=== PATIENT | female | born 1995 | race Caucasian/White ===

== ENCOUNTER 2016-10-28 17:00 | Emergency (ER) | payer OTHER ==
[2016-10-28 17:06] VITALS: BP 107/66
[2016-10-28] MEDS ORDERED: Nitrofurantoin Macrocrystals* 50 MG CAP PO ONE (18:17)
--- NOTE | 2016-10-28 18:21 | UC ---
Complaint Female HPI - HPI Summary HPI Summary: pt c/o urgency that started yesterday. pt sees pink to darker red on toilet tissue. [ End ] - History Of Current Complaint Chief Complaint: UCGU Stated Complaint: UTI Time Seen by Provider: 10/28/16 17:38 Hx Obtained From: Patient Hx Last Menstrual Period: 10/20/16 ?: No Onset/Duration: Sudden Onset, Lasting Days - 2, Still Present Timing: Constant Severity Initially: Moderate Severity Currently: Mild Pain Intensity: 4 Pain Scale Used: 0-10 Numeric Character: Burning Aggravating Factor(s): Urination Alleviating Factor(s): Nothing Associated Signs And Symptoms: Positive: Negative - Allergies/Home Medications Allergies/Adverse Reactions: Allergies Allergy/AdvReac Type Severity Reaction Status Date / Time No Known Allergies Allergy Verified 10/28/16 17:06 Home Medications: Home Medications Control Pill 10/28/16 [History] PMH/Surg Hx/FS Hx/Imm Hx Previously Healthy: Yes - Surgical History Surgical History: None - Family History Known Family History: Positive: None - Social History Occupation: Student Lives: With Family Alcohol Use: Weekly Substance Use Type: None Smoking Status (MU): Never Smoked Tobacco Review of Systems Constitutional: Negative Skin: Negative Eyes: Negative ENT: Negative Respiratory: Negative Cardiovascular: Negative Gastrointestinal: Negative Genitourinary: Dysuria, Hematuria, Frequency, Urgency Motor: Negative Neurovascular: Negative Musculoskeletal: Negative Neurological: Negative Psychological: Negative All Other Systems Reviewed And Are Negative: Yes Physical Exam Triage Information Reviewed: Yes Appearance: Well-Appearing, No Pain Distress, Well-Nourished Vital Signs: Initial Vital Signs Temp 98.2 F 10/28/16 17:03 Pulse 110 10/28/16 17:03 Resp 18 10/28/16 17:03 BP 107/66 10/28/16 17:03 Pulse Ox 99 10/28/16 17:03 Vital Signs Reviewed: Yes Eye Exam: Normal Eyes: Positive: Conjunctiva Clear ENT Exam: Normal ENT: Positive: Normal ENT inspection, Hearing grossly normal. Negative: Nasal congestion, Trismus, Muffled/hoarse voice Dental Exam: Normal Neck exam: Normal Neck: Positive: Supple, Nontender Respiratory Exam: Normal Respiratory: Positive: Chest non-tender, No respiratory distress, No accessory muscle use Cardiovascular Exam: Normal Cardiovascular: Positive: RRR, Brisk Capillary Refill Abdominal Exam: Normal Abdomen Description: Positive: Nontender, No Organomegaly, Soft. Negative: CVA Tenderness (R), CVA Tenderness (L) Bowel Sounds: Positive: Present Musculoskeletal Exam: Normal Musculoskeletal: Positive: Strength Intact, ROM Intact Neurological Exam: Normal Neurological: Positive: Alert, Muscle Tone Normal Psychological Exam: Normal Psychological: Positive: Normal Response To Family Skin Exam: Normal Complaint Female Dx - Course Course Of Treatment: Macrobid, Pyridium, increase fluids, follow with [employer] PRN - Differential Dx/Diagnosis Differential Diagnosis/HQI/PQRI: Appendicitis, Pelvic Inflammatory Disease, , Renal Colic, Urinary Tract Infection Provider Diagnoses: UTI Discharge - Discharge Plan Condition: Stable Disposition: HOME Prescriptions: Nitrofurantoin Monohyd Macro [Macrobid] 100 mg PO BID #19 cap Phenazopyridine TAB* [Pyridium 100 mg TAB*] 100 mg PO TID PRN #6 tab PRN Reason: urinary pain and burning Patient Education Materials: Phenazopyridine (By mouth), Urinary Tract Infection in Women (ED) Referrals: [facility] [Primary Care Provider] - 2 Weeks Additional Instructions: Return to Urgent Care if you have any new or worsening symptoms or if not improved in 2 days. You should establish with a private physician for follow-up care. If you are unable to get a timely appointment, or if you are worsening, call us or return for re-evaluation. An additional resource available to assist in finding the appropriate physician for your health care needs is the [facility]. You may contact them by calling [phone].
== END 2016-10-28 18:45 | disposition home or self-care (01) ==
LOC: UCEAST 17:00
DX: N39.0 Urinary tract infection, site not specified (principal); R31.9 Hematuria, unspecified; Z32.02 Encounter for pregnancy test, result negative
CPT/HCPCS: 81003; 84702; 87077; 87086; 87186; 99202; A9270-GY; G0463